=== PATIENT | male | born 1985 | race Caucasian/White ===

== ENCOUNTER 2016-08-06 18:15 | Inpatient (IN) | payer MEDICAID ==
[~2016-08-06] VITALS: Ht 172.7 cm; Wt 63.9 kg
[~2016-08-06 18:15] MED LIST: OLAN10TA3 PO; OLAN5TAB27 PO
[2016-08-06 18:37] LABS: BASOPHILS % (AUTO) 1.1 % (0.0-2.0); EOSINOPHILS % (AUTO) 1.2 % (1.0-6.0); HEMATOCRIT 41.1 % (41-53); HEMOGLOBIN 13.6 g/dL (13.5-17.5); MEAN CORPUSCULAR HEMOGLOBIN 29.1 pg (26.0-34.0); MEAN CORPUSCULAR HGB CONC 33.1 G/dL (31.0-37.0); MEAN CORPUSCULAR VOLUME 88 fL (80-100); MONOCYTES # (AUTO) 0.6 K/uL (0.1-1.0); MONOCYTES % (AUTO) 6.8 % (2.0-9.0); NEUTROPHILS # (AUTO) 6.4 K/uL (1.8-7.7); NEUTROPHILS % (AUTO) 68.9 % (40.0-70.0); PLATELET COUNT (AUTO) 301 K/uL (150-450); RED BLOOD CELL COUNT(AUTO) 4.67 MIL/uL (4.50-5.90); RED CELL DISTRIBUTION WIDTH 13.4 % (11.5-14.5); WHITE BLOOD COUNT (AUTO) 9.3 K/uL (4.5-11.0)
[2016-08-06 18:45] LABS: ANION GAP 11 mmol/L (8-16); CALCIUM, TOTAL 9.1 mg/dL (8.8-10.5); CARBON DIOXIDE 26 mmol/L (22-29); CHLORIDE 103 mmol/L (98-107); CREATININE 1.38 mg/dL (0.60-1.30); GLOMERULAR FILTR. RATE CALC > 60 mL/min (>60); POTASSIUM 3.8 mmol/L (3.5-5.1); SODIUM SERUM 140 mmol/L (136-145); UREA NITROGEN, BLOOD 19 mg/dL (7-18)
[2016-08-06 18:50] LABS: ALANINE AMINOTRANSFERASE 43 U/L (12-78); ASPARTATE AMINOTRANSFERASE 45 U/L (15-37); BILIRUBIN,TOTAL 0.7 mg/dL (0.1-1.0); TOTAL PROTEIN, SERUM 7.8 g/dL (6.4-8.2)
[2016-08-06] MEDS ORDERED: HALOPERIDOL LACTATE 5 MG/ML VIAL IM ONE (19:00)
[2016-08-06] MEDS ORDERED: LORazepam 2 MG/ML VIAL IM ONE (19:00)
[2016-08-06] MEDS ORDERED: DiphenhydrAMINE HCL 50 MG/ML VIAL IM ONE (19:00)
[2016-08-06] MEDS ORDERED: LORazepam 2 MG TABLET PO PRN (19:15)
[2016-08-06] MEDS ORDERED: HALOPERIDOL 5 MG TABLET PO PRN (19:15)
[2016-08-06] MEDS ORDERED: ZOLPIDEM TARTRATE 10 MG TABLET PO PRN (19:15)
[2016-08-06] MEDS ORDERED: IBUPROFEN 400 MG TABLET PO PRN (21:15)
[2016-08-06] MEDS ORDERED: MAGNESIUM HYDROXIDE SUSPENSION 30 ML UDCUP PO PRN (21:15)
[2016-08-06] MEDS ORDERED: ACETAMINOPHEN 325 MG TABLET PO PRN (21:15)
[2016-08-06 21:32] VITALS: BP 128/69
[2016-08-07 08:32] VITALS: BP 126/78
[2016-08-07] MEDS: BACITRACIN 28.4 GM OINTMENT TP SCH ×2 (11:27→17:05)
[2016-08-07] MEDS: RisperiDONE 3 MG TABLET PO SCH (17:05)
[2016-08-07] MEDS ORDERED: ACETAMINOPHEN 325 MG TABLET PO PRN (20:30)
[2016-08-07] MEDS ORDERED: IBUPROFEN 400 MG TABLET PO PRN (20:30)
[2016-08-08 08:07] VITALS: BP 125/67
[2016-08-08 08:08] LABS: CHOL/HDL RATIO 1.7 (4.2-7.3)
[2016-08-08] MEDS: RisperiDONE 3 MG TABLET PO SCH ×2 (08:54→16:32)
[2016-08-08] MEDS: BACITRACIN 28.4 GM OINTMENT TP SCH ×2 (08:55→16:31)
[2016-08-08] MEDS ORDERED: RISP3TAB44 PO (16:18)
[2016-08-08 16:27] VITALS: BP 127/70
== END 2016-08-08 17:15 | disposition home or self-care (01) | DRG 750 ==
LOC: EMS 18:20 → 3EC 19:54
PROVIDERS: ADMIT Psychiatry & Neurology Psychiatry; ATTEND Psychiatry & Neurology Psychiatry
DX: F20.0 Paranoid schizophrenia (principal); F15.10 Other stimulant abuse, uncomplicated; L60.0 Ingrowing nail; N18.9 Chronic kidney disease, unspecified; F17.210 Nicotine dependence, cigarettes, uncomplicated
CPT/HCPCS: 83036; 96372; 99285; G0480; J1200; J1630; J2060

== ENCOUNTER 2017-01-01 01:56 | Emergency (ER) | payer MEDICAID ==
[~2017-01-01] VITALS: Ht 180.3 cm; Wt 73.6 kg
[~2017-01-01 01:56] MED LIST changes: -OLAN10TA3 PO; -OLAN5TAB27 PO; +RISP3 PO
[2017-01-01] MEDS ORDERED: TRAZ150T85 PO (02:18)
[2017-01-01] MEDS ORDERED: IBUP100T8 PO (02:18)
[2017-01-01] MEDS ORDERED: PROP60CA2 PO (02:18)
[2017-01-01] MEDS ORDERED: HALO5TAB23 PO ×2 (02:18)
[2017-01-01] MEDS ORDERED: PRAZ1CAP5 PO (02:18)
[2017-01-01] MEDS ORDERED: OLAN15TA2 PO (02:18)
[2017-01-01 04:34] VITALS: BP 142/76
== END 2017-01-01 05:07 | disposition home or self-care (01) ==
LOC: EMS 01:57
DX: F41.9 Anxiety disorder, unspecified (principal); F20.9 Schizophrenia, unspecified; F17.210 Nicotine dependence, cigarettes, uncomplicated; F12.90 Cannabis use, unspecified, uncomplicated; F19.90 Other psychoactive substance use, unspecified, uncomplicated
CPT/HCPCS: 99284

== ENCOUNTER 2017-09-07 08:44 | Emergency (ER) | payer MEDICAID ==
[~2017-09-07] VITALS: Ht 170.2 cm; Wt 64.5 kg
[~2017-09-07 08:44] MED LIST changes: +HALO5TAB23 PO; +IBUP100T8 PO; +OLAN15TA2 PO; +PRAZ1CAP5 PO; +PROP60CA2 PO; +TRAZ150T79 PO
[2017-09-07 08:46] VITALS: BP 149/64
== END 2017-09-07 09:15 | disposition left against medical advice (07) ==
LOC: EMS 08:45
DX: F41.9 Anxiety disorder, unspecified (principal); F20.9 Schizophrenia, unspecified; F17.210 Nicotine dependence, cigarettes, uncomplicated; F12.90 Cannabis use, unspecified, uncomplicated; F19.90 Other psychoactive substance use, unspecified, uncomplicated; Z53.21 Procedure and treatment not carried out due to patient leaving prior to being seen by health care provider
CPT/HCPCS: 99283

== ENCOUNTER 2017-09-21 00:01 | Emergency (ER) | payer MEDICAID | END 2017-09-21 01:46 | disposition left against medical advice (07) | LOC: EMS 00:02 | DX: R21 Rash and other nonspecific skin eruption (principal); Z53.21 Procedure and treatment not carried out due to patient leaving prior to being seen by health care provider ==

== ENCOUNTER 2017-11-28 02:07 | Emergency (ER) | payer MEDICAID ==
[~2017-11-28] VITALS: Ht 170.2 cm; Wt 75.0 kg
[2017-11-28 02:40] VITALS: BP 136/72
[2017-11-28 04:29] LABS: BASOPHILS % (AUTO) 0.9 % (0.0-2.0); EOSINOPHILS % (AUTO) 2.5 % (1.0-6.0); HEMATOCRIT 39.7 % (41-53); HEMOGLOBIN 13.7 g/dL (13.5-17.5); LYMPHOCYTES # (AUTO) 1.7 K/uL (1.0-4.8); LYMPHOCYTES % (AUTO) 21.3 % (22.0-44.0); MEAN CORPUSCULAR HEMOGLOBIN 29.3 pg (26.0-34.0); MEAN CORPUSCULAR HGB CONC 34.6 G/dL (31.0-37.0); MEAN CORPUSCULAR VOLUME 85 fL (80-100); MONOCYTES # (AUTO) 0.6 K/uL (0.1-1.0); MONOCYTES % (AUTO) 7.6 % (2.0-9.0); NEUTROPHILS # (AUTO) 5.4 K/uL (1.8-7.7); NEUTROPHILS % (AUTO) 67.7 % (40.0-70.0); PLATELET COUNT (AUTO) 291 K/uL (150-450); RED BLOOD CELL COUNT(AUTO) 4.68 MIL/uL (4.50-5.90); RED CELL DISTRIBUTION WIDTH 14.8 % (11.5-14.5)
[2017-11-28 04:35] LABS: ANION GAP 6 mmol/L (8-16); CARBON DIOXIDE 30 mmol/L (22-29); CHLORIDE 102 mmol/L (98-107); CREATININE 0.89 mg/dL (0.60-1.30); GLOMERULAR FILTR. RATE CALC > 60 mL/min (>60); GLUCOSE,RANDOM 91 mg/dL (70-110); POTASSIUM 4.3 mmol/L (3.5-5.1); SODIUM SERUM 138 mmol/L (136-145); UREA NITROGEN, BLOOD 17 mg/dL (7-18)
[2017-11-28 04:42] LABS: ALANINE AMINOTRANSFERASE 63 U/L (12-78); ALBUMIN 4.1 g/dL (3.4-5.0); ALKALINE PHOSPHATASE 76 U/L (46-116); ASPARTATE AMINOTRANSFERASE 40 U/L (15-37); BILIRUBIN,TOTAL 0.6 mg/dL (0.1-1.0); TOTAL PROTEIN, SERUM 7.9 g/dL (6.4-8.2)
== END 2017-11-28 06:54 | disposition left against medical advice (07) ==
LOC: EMS 02:08
DX: Z00.8 Encounter for other general examination (principal); F17.210 Nicotine dependence, cigarettes, uncomplicated; Z53.21 Procedure and treatment not carried out due to patient leaving prior to being seen by health care provider
CPT/HCPCS: 36415; 80053; 85025; G0480